=== PATIENT | female | born 1980 | race Two or more races ===

== ENCOUNTER 2022-06-22 08:57 | Emergency (ER) | payer OTHER ==
[~2022-06-22] VITALS: Ht 172.7 cm; Wt 104.5 kg
[2022-06-22 09:08] VITALS: BP 143/100
== END 2022-06-22 09:42 | disposition home or self-care (01) ==
LOC: ER 08:57
DX: S60.941A Unspecified superficial injury of left index finger, initial encounter (principal); W46.1XXA Contact with contaminated hypodermic needle, initial encounter; Y93.89 Activity, other specified; Y92.89 Other specified places as the place of occurrence of the external cause; Y99.8 Other external cause status
CPT/HCPCS: 99281